=== PATIENT | female | born 1995 | race Caucasian/White ===

== ENCOUNTER 2020-03-19 07:18 | Emergency (ER) | payer OTHER ==
[~2020-03-19] VITALS: Ht 152.4 cm; Wt 63.5 kg
[2020-03-19] MEDS ORDERED: KETO10TA2 PO (12:27)
== END 2020-03-20 15:09 | disposition home or self-care (01) ==
LOC: ER 07:18
DX: M79.641 Pain in right hand (principal)

== ENCOUNTER 2020-07-07 05:26 | Emergency (ER) | payer OTHER ==
[~2020-07-07] VITALS: Ht 152.4 cm; Wt 61.7 kg
[~2020-07-07 05:26] MED LIST: KETO10TA2 PO
[2020-07-07] MEDS ORDERED: VOLTAREN-XR100 MG PO (07:56)
== END 2020-07-07 08:13 | disposition home or self-care (01) ==
LOC: ER 05:26
DX: G56.03 Carpal tunnel syndrome, bilateral upper limbs (principal); R53.1 Weakness

== ENCOUNTER 2022-12-05 21:15 | Emergency (ER) | payer OTHER ==
[~2022-12-05] VITALS: Ht 154.9 cm; Wt 64.0 kg
[~2022-12-05 21:15] MED LIST changes: +VOLTAREN-XR100 MG PO
== END 2022-12-06 00:05 | disposition home or self-care (01) ==
LOC: ER 21:15
DX: K29.60 Other gastritis without bleeding (principal); R11.10 Vomiting, unspecified

== ENCOUNTER 2023-02-10 18:05 | Emergency (ER) | payer OTHER ==
[~2023-02-10] VITALS: Ht 152.4 cm; Wt 62.1 kg
== END 2023-02-10 20:03 | disposition home or self-care (01) ==
LOC: ER 18:05
DX: A54.1 Gonococcal infection of lower genitourinary tract with periurethral and accessory gland abscess (principal)

== ENCOUNTER → 2023-02-10 | Emergency (ER) | payer OTHER ==
[~2023-02-10] VITALS: Ht 152.4 cm; Wt 61.7 kg
== END | disposition left against medical advice (07) ==
LOC: ER 03:36
DX: Z53.21 Procedure and treatment not carried out due to patient leaving prior to being seen by health care provider (principal)

== ENCOUNTER 2023-04-27 00:57 | Emergency (ER) | payer OTHER ==
[~2023-04-27] VITALS: Ht 152.4 cm; Wt 59.9 kg
[2023-04-27] MEDS ORDERED: ORASEP SPRAY30 ML MM (06:02)
== END 2023-04-27 06:26 | disposition home or self-care (01) ==
LOC: ER 00:57
DX: J04.0 Acute laryngitis (principal); Z20.822 Contact with and (suspected) exposure to COVID-19

== ENCOUNTER 2024-07-10 02:46 | Emergency (ER) | payer OTHER ==
[~2024-07-10] VITALS: Ht 152.4 cm; Wt 63.5 kg
[~2024-07-10 02:46] MED LIST changes: +ORASEP SPRAY30 ML MM
[2024-07-10] MEDS ORDERED: KETOROLAC TROMETHAMINE 60 MG VIAL IM STA (03:59)
[2024-07-10] MEDS ORDERED: DEXAMETHASONE SODIUM PHOSPHATE 4 MG/ML VIAL IM STA (04:00)
[2024-07-10] MEDS ORDERED: CLINDAMYCIN PHOSPHATE 150 MG/ML (600mg) IM STA (04:00)
[2024-07-10] MEDS ORDERED: OxyCODONE HCL/APAP UD (PERCOCET) PO STA (04:01)
== END 2024-07-10 04:13 | disposition home or self-care (01) ==
LOC: ER 02:46
DX: K03.81 Cracked tooth (principal); K08.89 Other specified disorders of teeth and supporting structures

== ENCOUNTER 2025-01-31 18:11 | Emergency (ER) | payer OTHER ==
[~2025-01-31] VITALS: Ht 154.9 cm; Wt 63.5 kg
[2025-01-31] MEDS ORDERED: FAMOTIDINE/PF 20 MG/2 ML VIAL IV ONE (20:15)
[2025-01-31] MEDS ORDERED: FAMOTIDINE/PF 20 MG/2 ML VIAL ONE (20:15)
[2025-01-31] MEDS ORDERED: KETOROLAC TROMETHAMINE 30 MG VIAL IV ONE (20:15)
[2025-01-31] MEDS ORDERED: KETOROLAC TROMETHAMINE 30 MG VIAL ONE (20:15)
[2025-01-31] MEDS ORDERED: 0.9 % SODIUM CHLORIDE 500 ML IV ONE (20:15)
[2025-01-31 20:41] LABS: BASO % 0.3 % (0.1-1.2); EOS # 0.02 (0.04-0.54); EOS % 0.2 % (0.7-7.0); HEMATOCRIT 31.6 % (34.1-44.9); HEMOGLOBIN 10.3 g/dL (11.2-15.7); LYMPH # 0.96 (1.18-3.74); MEAN CORPUSCULAR HEMOGLOBIN 21.1 pg (25.6-32.2); MONO # 0.58 (0.24-0.82); NEUT % 83.2 % (34.0-71.1); PLATELET COUNT 440 K/uL (163-369); RED BLOOD COUNT 4.87 M/uL (3.93-5.22); RED CELL DISTRIBUTION WIDTH 15.5 % (11.6-14.4)
[2025-01-31 21:07] LABS: ALBUMIN 4.5 gm/dL (3.4-5.0); BILIRUBIN TOTAL 1.45 mg/dL (0.3-1.2); CALCIUM 9.2 mg/dL (8.5-10.1); CREATININE SERUM 0.86 mg/dL (0.55-1.02); GFR 78.01; GLOBULINA 3.4 G/DL (2.4-3.5); POTASSIUM 3.67 mEq/L (3.5-5.1); TOTAL PROTEIN 7.9 gm/dL (6.4-8.2)
[2025-01-31] MEDS ORDERED: CEFTRIAXONE SODIUM 2,000 MG VIAL ONE (21:51)
[2025-01-31] MEDS ORDERED: TAMSULOSIN HCL 0.4 MG CAP PO ONE ×2 (21:51→22:00)
[2025-01-31] MEDS ORDERED: CEFTRIAXONE SODIUM 2,000 MG VIAL IV ONE (22:00)
[2025-01-31 22:32] LABS: PH,URINE 5.5 (5.0-8.0); URINE APPEARANCE Clear; URINE BILIRRUBIN Negative (NEGATIVE); URINE BLOOD Large; URINE COLOR Dark Yellow; URINE GLUCOSE Negative (NEGATIVE); URINE LEUKOCYTE Small; URINE NITRATE Negative; URINE PROTEIN 30 (NEGATIVE)
[2025-01-31 22:35] LABS: URINE BACTERIA 668.1 uL (0.0-1933); URINE WBC 661.9 uL (0.0-23.2)
[2025-01-31 22:57] LABS: URINE KETONE 80 (NEGATIVE)
[2025-01-31] MEDS ORDERED: NORFLEX100MG PO (23:04)
[2025-01-31] MEDS ORDERED: CEPHALEXIN500 MG PO (23:04)
[2025-01-31] MEDS ORDERED: PEPCID AC20 MG PO (23:04)
[2025-01-31] MEDS ORDERED: ONDANSETRON HCL4 MG PO (23:04)
[2025-01-31] MEDS ORDERED: KETO10TA2 PO (23:04)
[2025-01-31] MEDS ORDERED: TAMS0.4C PO (23:04)
== END 2025-01-31 23:43 | disposition home or self-care (01) ==
LOC: ER 18:18
PROVIDERS: General Practice
DX: N20.1 Calculus of ureter (principal); R34 Anuria and oliguria; R10.9 Unspecified abdominal pain